=== PATIENT | male | born 1930 | race Caucasian/White ===

== ENCOUNTER 2020-03-18 19:23 | Emergency (ER) | payer MEDICARE, OTHER ==
[~2020-03-18] VITALS: Ht 172.7 cm; Wt 90.0 kg
[2020-03-18] MEDS ORDERED: 0.9 % SODIUM CHLORIDE 10 ML DISP.SYRIN. IV PRN (20:00)
[2020-03-18] MEDS ORDERED: VANCOMYCIN PER PHARMACY MC ONE (20:00)
[2020-03-18] MEDS ORDERED: IV NORMAL SALINE 1,000ML 1,000 ML IV ONE ×2 (20:00)
[2020-03-18] MEDS ORDERED: PIPERACILLIN/TAZOBACTAM 4.5 GM VIAL IV ONE (20:07)
[2020-03-18] MEDS ORDERED: IOHEXOL 350 MG/ML 100 ML VIAL. IV ONE (20:15)
[2020-03-18 20:30] LABS: BASO % 0 % (0-3); EOS % 0 % (0-3); HEMATOCRIT 44.8 % (39.0-53.0); HEMOGLOBIN 14.6 g/dL (13.0-17.5); LYMPH # 0.4 x10^3/uL (1.0-4.8); LYMPH % 8 % (24-48); MEAN CORPUSCULAR HEMOGLOBIN 27 pg (25-35); MEAN CORPUSCULAR HGB CONC 33 g/dL (31-37); MEAN CORPUSCULAR VOLUME 83 fL (79-100); MONO # 0.6 x10^3/uL (0.0-1.1); MONO % 12 % (0-9); NEUT # 3.8 x10^3uL (1.8-7.7); NEUT % 79 % (31-73); PLATELET COUNT 183 x10^3/uL (140-400); RED BLOOD COUNT 5.42 x10^6/uL (4.30-5.70); RED CELL DISTRIBUTION WIDTH 14.6 % (11.5-14.5); WHITE BLOOD COUNT 4.8 x10^3/uL (4.0-11.0)
[2020-03-18] MEDS ORDERED: CONTRAST GIVEN. MC PRN (20:30)
[2020-03-18] MEDS ORDERED: PIPERACILLIN/TAZOBACTAM 4.5 GM in IV NORMAL SALINE 50ML 50 ML IV ONE (20:30)
--- NOTE | 2020-03-18 20:36 | PHYS DOC ---
General Adult EDM: Chief Complaint: SHORTNESS OF BREATH HPI: HPI: 89-year-old male past medical history significant for CVA (no residual deficits), hypertension, hyperlipidemia, atrial flutter on Xarelto and GERD, presents to the ED brought in by his daughter with concern for generalized weakness, fatigue, left anterior rib pain, with fall and blunt head injury 2 days ago (LOC unknown). Patient tested positive for Covid approximately 8 days ago and has completed 5 days of prednisone, 40 mg daily. No prior h/o chf (has normal "EF"-daughter present is an ED physician from [place]), syncope or blood clots. Hx limited due to pts' confusion which is new, has no underlying dementia (lives at home w/). PMD-[facility]. No recent hospitalizations. 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 Review of Systems: Review of Systems: ROS limited due to confusion-pt denies any active pain Current Medications: Current Meds: Current Medications Medications (Trade) Dose Ordered Sig/Jerilyn Start Time Stop Time Status Last Admin Dose Admin Info (Do NOT chart on this entry -- for MONITORING) 1 each PRN DAILY PRN 03/18/20 20:30 03/20/20 20:29 Iohexol (Omnipaque 350 Mg/ml) 100 ml 1X ONCE 03/18/20 20:15 03/18/20 20:16 DC Piperacillin Sod/ Tazobactam Sod (Zosyn) 4.5 gm STK-MED ONCE 03/18/20 20:07 03/18/20 20:07 DC Piperacillin Sod/ Tazobactam Sod 4.5 gm/Sodium Chloride 50 ml @ 100 mls/hr 1X ONCE 03/18/20 20:30 03/18/20 20:59 Sodium Chloride 1,000 ml @ 1,000 mls/hr 1X ONCE 03/18/20 20:00 03/18/20 20:59 Sodium Chloride (Normal Saline Flush) 10 ml QSHIFT PRN 03/18/20 20:00 Vancomycin HCl (Vanco Per Pharmacy) 1 each 1X ONCE 03/18/20 20:00 03/18/20 20:01 UNV Allergies: Allergies: Allergies Coded Allergies Type Severity Reaction Last Updated Verified No Known Drug Allergies 03/18/20 No Physical Exam: PE: Constitutional: appears fatigued/worn out, temp 100.0, HENT: bruising over right forehead, no raccoon eyes or periorbital ecchymosis, bilateral external ears normal, no hemotympanum, no septal hematoma, oropharynx moist, no oral exudates, nose normal. [] Eyes: PERRLA, EOMI, conjunctiva normal, no discharge. [] Neck: Normal range of motion, no tenderness, supple, no stridor. [] Cardiovascular:Heart rate regular rhythm, no murmur [] Lungs & Thorax: Bilateral breath sounds clear to auscultation [] actively dry coughing in ED, tachypnea in the low 30s, saturating 92% on 3 L nasal cannula (was in upper 70s/low 80s on no oxygen on arrival), left lower chest wall ttp, Abdomen: Bowel sounds normal, soft, no masses, no pulsatile masses, large area of ecchymosis approximately 15 x 15 cm over left lower quadrant and left lumbar mid axillary region, no hip ttp Skin: Warm, dry, no erythema, no rash. [] Back: No midline tenderness, no CVA tenderness. [] old scabs over left mid- thoracic region in linear unilateral distribution-resolving shingles? Extremities: No tenderness, no cyanosis, no clubbing, ROM intact, no edema. [] straight leg raise negative for back/neck pain Neurologic: Alert and oriented to self/month/year but answers some questions inappropriately/mumbles, normal motor function, normal sensory function, no focal deficits noted. [] EKG: EKG: Sinus rhythm at 83 bpm, no axis deviation, normal intervals, no T wave inversions, no ST elevations or ST depressions Radiology/Procedures: Radiology/Procedures: IMAGING REPORT Signed PATIENT: FRANCINE SÁNCHEZ PACCOUNT: [id number] : 1930 LOCATION: ER AGE: 89 SEX: M EXAM STATUS: REG ER ORD. PHYSICIAN: GREGORIA MENG DO REASON: fall on plavix PROCEDURE: CT HEAD AND CERVICAL SPINE WO CT scan of the head without contrast 03/18/2020 Clinical History: Fall. Anticoagulant therapy. Technique: Unenhanced, contiguous, 5 mm axial sections were obtained through the head. One or more of the following individualized dose reduction techniques were utilized for this study: 1. Automated exposure control. 2. Adjustment of the mA and/or kV according to patient size. 3. Use of iterative reconstruction technique. Findings: There is generalized parenchymal atrophy. Areas of decreased attenuation are seen within the periventricular and subcortical white matter of both cerebral hemispheres consistent with areas of small vessel ischemic disease. Areas of encephalomalacia are seen involving both frontal lobes. No acute parenchymal abnormality is seen. No extra-axial fluid collection is noted. No skull fracture is seen. Impression: No acute intracranial abnormality is seen. CT scan of the cervical spine without contrast November 17, 2019 Clinical history: Fall. Neck injury. Technique: Unenhanced, contiguous, 0.625 mm axial sections were obtained through the cervical spine. Axial, coronal and sagittal reconstructed images were obtained. One or more of the following individualized dose reduction techniques were utilized for this study: 1. Automated exposure control. 2. Adjustment of the mA and/or kV according to patient size. 3. Use of iterative reconstruction technique. Findings: Sagittal and coronal reconstructed images demonstrate very mild lateral curvature of the cervical spine, convex to the right. There is straightening of the normal cervical lordosis. Degenerative changes consisting of varying degrees of disc space narrowing, vertebral endplate sclerosis and mild to moderate anterior and posterior vertebral body osteophyte formation are seen throughout the cervical disc spaces. No fracture or subluxation of the cervical vertebrae is seen. Degenerative changes are seen involving the uncovertebral and facet joints throughout the cervical disc spaces. Impression: No fracture or subluxation of the cervical vertebra is identified. Electronically signed by: Donato Burns MD (03/18/2020 9:50 PM) [id number] DICTATED AND SIGNED BY: DONATO BURNS MD DATE: 03/18/202149 CC: JANET AVELAR MD; GREGORIA MENG DO ~ IMAGING REPORT Signed PATIENT: FRANCINE SÁNCHEZ PACCOUNT: [id number] : 1930 LOCATION: ER AGE: 89 SEX: M EXAM STATUS: REG ER ORD. PHYSICIAN: GREGORIA MENG DO REASON: fall on plavix PROCEDURE: CT MAXILLOFACIAL WO CONTRAST CT scan of the facial bones without contrast 03/18/2020 CLINICAL HISTORY: Fall with facial injury. TECHNIQUE: Unenhanced, contiguous, 0.625 mm axial sections were obtained through the facial bones and orbits. 3 mm reconstructed sagittal, axial and coronal images were obtained. One or more of the following individualized dose reduction techniques were utilized for this study: 1. Automated exposure control. 2. Adjustment of the mA and/or kV according to patient size. 3. Use of iterative reconstruction technique. FINDINGS: No facial bone fracture is seen. Both orbits are intact. Mild mucosal thickening is involving the left maxillary sinus and scattered throughout the ethmoid air cells bilaterally. No air-fluid level is seen. IMPRESSION: No facial bone or orbital fracture is seen. Electronically signed by: Donato Burns MD (03/18/2020 10:12 PM) [id number] DICTATED AND SIGNED BY: DONATO BURNS MD DATE: 03/18/202211 CC: JANET AVELAR MD; GREGORIA MENG DO ~ IMAGING REPORT Signed PATIENT: FRANCINE SÁNCHEZ PACCOUNT: [id number] : 1930 LOCATION: ER AGE: 89 SEX: M EXAM STATUS: REG ER ORD. PHYSICIAN: GREGORIA MENG DO REASON: OMNI 350,90ML IV.SOA,+COVID X8 DAYS AGO,R/O PE. PROCEDURE: CT ANGIO CHEST W ABD PEL W/ Exam: CT of chest, abdomen and pelvis with contrast INDICATION: Short of air TECHNIQUE: Sequential axial images through the chest, abdomen and pelvis obtained following the administration of 90 mL of Omni 350 IV contrast. Sagittal and coronal reformatted images were reconstructed from the axial data and reviewed. 3-D reformatted images were reconstructed from the axial data and reviewed. Comparisons: None FINDINGS: Visualized portions thyroid are unremarkable. No enlarged mediastinal lymph nodes are identified. Heart size is normal. No pericardial effusion. Mild coronary artery calcification. Thoracic aorta has a normal course and caliber. Pulmonary artery is not enlarged. No pulmonary embolus identified within the main, lobar or proximal segmental pulmonary arteries. Airways are patent. There is patchy groundglass opacity in periphery lungs bilaterally. No pneumothorax. Trace left pleural effusion. Evaluation of the upper abdomen is markedly limited secondary to extensive respiratory motion. There is a mildly displaced fractures involving the posterior lateral eighth and ninth ribs. Liver, spleen, pancreas, adrenals and gallbladder are unremarkable. No perinephric inflammation or hydronephrosis. Hypoattenuating cystic lesion exophytic likely arising off the mid to lower pole of the right kidney likely representing simple cysts. No renal or ureteral calculi are identified. Bladder is partially distended and not well evaluated. Prostate is not well evaluated. Large and small bowel are unremarkable. Appendix is normal. No free intra-abdominal air or fluid. No obstruction. Abdominal aorta has a normal course and caliber. Abdominal vasculature is patent. No enlarged intra-abdominal lymph nodes are identified. IMPRESSION: 1. Extensive Patchy groundglass opacity at the lungs bilaterally consistent with history of Covid. 2. No pulmonary embolus identified within the main, lobar or segmental pulmonary arteries. 3. Mildly displaced fractures involving the left lateral eighth and ninth ribs. Exposure: One or more of the following in the visualized dose reduction techniques were utilized for this examination: 1. Automated exposure control 2. Adjustment of the MA and/or KV according to patient size 3. Use of iterative of reconstructive technique Electronically signed by: Cody Adler MD (03/18/2020 9:50 PM) [facility] DICTATED AND SIGNED BY: CODY ADLER MD DATE: 03/18/202149 CC: JANET AVELAR MD; GREGORIA MENG DO ~ Heart Score: Risk Factors: Risk Factors: DM, Current or recent (<one month) smoker, HTN, HLP, family history of CAD, obesity. Risk Scores: Score 0 - 3: 2.5% MACE over next 6 weeks - Discharge Home Score 4 - 6: 20.3% MACE over next 6 weeks - Admit for Clinical Observation Score 7 - 10: 72.7% MACE over next 6 weeks - Early Invasive Strategies Course & Med Decision Making: Course & Med Decision Making Pertinent Labs and Imaging studies reviewed. (See chart for details) COVID-19 CRITERIA: The patient was evaluated during the global COVID-19 pandemic, and that diagnosis was suspected/considered upon their initial presentation. Their evaluation, treatment and testing was consistent with c urrent guidelines for patients who present with complaints or symptoms that may be related to COVID-19. Concern for acute hypoxic respiratory failure, requiring BiPAP. Meets sepsis criteria-has covid, influenza negative. No lactic acidosis or leukocytosis. Troponin elevated-demand vs ischemia vs myocarditis, pt denies chest pain or soa. Also with acute encephalopathy-is confused. Pt improving on bipap, tachypnea resolved, saturating 96-97% on FiO2 55%, /. CTA with no PE, left lateral mildly displaced rib fractures (fell 2 days ago). U/A obtained from straight cath with trace blood, no infection (has bph and is voiding small amounts in ed, daughter refuses rivera placement). Due to critical nature, will transfer to higher level of care with interventional cardiology. Pts' daughter at bedside, requesting transfer to although and both [facility] are on high volume. Daughter requesting [facility]-pt accepted and stable at time of transfer. Critical Care: Authorized and Performed by: Gregoria Meng DO Total critical care time: approximately 45 minutes Due to a high probability of clinically significant, life threatening deterioration, the patient required my highest level of preparedness to intervene emergently and I personally spent this critical care time directly and personally managing the patient. This critical care time included obtaining a history; examining the patient; pulse oximetry; ventilator management if necessary; ordering and review of studies; arranging urgent treatment with d evelopment of a management plan; evaluation of patient's response to treatment; frequent reassessment; discussion with patient/family; and, discussions with other providers. This critical care time was performed to assess and manage the high probability of imminent, life-threatening deterioration that could result in multi-organ failure. It was exclusive of separately billable procedures and treating other patients and teaching time. Please see MDM section and the rest of the note for further information on patient assessment and treatment. Dragon Disclaimer: Dragon Disclaimer: This electronic medical record was generated, in whole or in part, using a voice recognition dictation system. Departure Departure: Impression: Primary Impression: Acute respiratory failure with hypoxia Additional Impressions: COVID-19 Elevated troponin I level Sepsis Encephalopathy acute Fracture, ribs Disposition: 02 DC/TRF OTHER SHORT TERM HOS (Accepted at [facility], Dr. Roge Burk) Condition: CRITICAL Referrals: JANET AVELAR MD (PCP) GREGORIA MENG DO Mar 18, 2020 20:36
[2020-03-18 20:43] LABS: CALCIUM 8.4 mg/dL (8.5-10.1); CREATININE 1.3 mg/dL (0.7-1.3)
[2020-03-18 20:47] LABS: DIRECT BILIRUBIN 0.3 mg/dL (0.0-0.2); TOTAL BILIRUBIN 0.7 mg/dL (0.2-1.0); TOTAL PROTEIN 6.4 g/dL (6.4-8.2)
[2020-03-18 20:48] LABS: C REACTIVE PROTEIN 137.9 mg/L (0-3.3)
[2020-03-18] MEDS ORDERED: DEXAMETHASONE SOD PHOS 10 MG/ML VIAL. IV ONE (21:00)
[2020-03-18 21:26] LABS: INFLUENZA A PATIENT NEGATIVE (NEGATIVE); INFLUENZA B PATIENT NEGATIVE (NEGATIVE)
[2020-03-18] MEDS ORDERED: VANCOMYCIN 2 GM in IV NORMAL SALINE 500ML 500 ML IV ONE (21:30)
--- NOTE | 2020-03-18 21:54 | RAD ---
CT scan of the head without contrast 03/18/2020 Clinical History: Fall. Anticoagulant therapy. Technique: Unenhanced, contiguous, 5 mm axial sections were obtained through the head. One or more of the following individualized dose reduction techniques were utilized for this study: 1. Automated exposure control. 2. Adjustment of the mA and/or kV according to patient size. 3. Use of iterative reconstruction technique. Findings: There is generalized parenchymal atrophy. Areas of decreased attenuation are seen within the periventricular and subcortical white matter of both cerebral hemispheres consistent with areas of small vessel ischemic disease. Areas of encephalomalacia are seen involving both frontal lobes. No acute parenchymal abnormality is seen. No extra-axial fluid collection is noted. No skull fracture is seen. Impression: No acute intracranial abnormality is seen. CT scan of the cervical spine without contrast November 17, 2019 Clinical history: Fall. Neck injury. Technique: Unenhanced, contiguous, 0.625 mm axial sections were obtained through the cervical spine. Axial, coronal and sagittal reconstructed images were obtained. One or more of the following individualized dose reduction techniques were utilized for this study: 1. Automated exposure control. 2. Adjustment of the mA and/or kV according to patient size. 3. Use of iterative reconstruction technique. Findings: Sagittal and coronal reconstructed images demonstrate very mild lateral curvature of the cervical spine, convex to the right. There is straightening of the normal cervical lordosis. Degenerative changes consisting of varying degrees of disc space narrowing, vertebral endplate sclerosis and mild to moderate anterior and posterior vertebral body osteophyte formation are seen throughout the cervical disc spaces. No fracture or subluxation of the cervical vertebrae is seen. Degenerative changes are seen involving the uncovertebral and facet joints throughout the cervical disc spaces. Impression: No fracture or subluxation of the cervical vertebra is identified. Electronically signed by: Donato Burns MD (03/18/2020 9:50 PM) [id number]
--- NOTE | 2020-03-18 21:54 | RAD ---
Exam: CT of chest, abdomen and pelvis with contrast INDICATION: Short of air TECHNIQUE: Sequential axial images through the chest, abdomen and pelvis obtained following the administration of 90 mL of Omni 350 IV contrast. Sagittal and coronal reformatted images were reconstructed from the axial data and reviewed. 3-D reformatted images were reconstructed from the axial data and reviewed. Comparisons: None FINDINGS: Visualized portions thyroid are unremarkable. No enlarged mediastinal lymph nodes are identified. Heart size is normal. No pericardial effusion. Mild coronary artery calcification. Thoracic aorta has a normal course and caliber. Pulmonary artery is not enlarged. No pulmonary embolus identified within the main, lobar or proximal segmental pulmonary arteries. Airways are patent. There is patchy groundglass opacity in periphery lungs bilaterally. No pneumothorax. Trace left pleural effusion. Evaluation of the upper abdomen is markedly limited secondary to extensive respiratory motion. There is a mildly displaced fractures involving the posterior lateral eighth and ninth ribs. Liver, spleen, pancreas, adrenals and gallbladder are unremarkable. No perinephric inflammation or hydronephrosis. Hypoattenuating cystic lesion exophytic likely arising off the mid to lower pole of the right kidney likely representing simple cysts. No renal or ureteral calculi are identified. Bladder is partially distended and not well evaluated. Prostate is not well evaluated. Large and small bowel are unremarkable. Appendix is normal. No free intra-abdominal air or fluid. No obstruction. Abdominal aorta has a normal course and caliber. Abdominal vasculature is patent. No enlarged intra-abdominal lymph nodes are identified. IMPRESSION: 1. Extensive Patchy groundglass opacity at the lungs bilaterally consistent with history of Covid. 2. No pulmonary embolus identified within the main, lobar or segmental pulmonary arteries. 3. Mildly displaced fractures involving the left lateral eighth and ninth ribs. Exposure: One or more of the following in the visualized dose reduction techniques were utilized for this examination: 1. Automated exposure control 2. Adjustment of the MA and/or KV according to patient size 3. Use of iterative of reconstructive technique Electronically signed by: Cody Alejo MD (03/18/2020 9:50 PM) [facility]
--- NOTE | 2020-03-18 22:14 | RAD ---
CT scan of the facial bones without contrast 03/18/2020 CLINICAL HISTORY: Fall with facial injury. TECHNIQUE: Unenhanced, contiguous, 0.625 mm axial sections were obtained through the facial bones and orbits. 3 mm reconstructed sagittal, axial and coronal images were obtained. One or more of the following individualized dose reduction techniques were utilized for this study: 1. Automated exposure control. 2. Adjustment of the mA and/or kV according to patient size. 3. Use of iterative reconstruction technique. FINDINGS: No facial bone fracture is seen. Both orbits are intact. Mild mucosal thickening is involving the left maxillary sinus and scattered throughout the ethmoid air cells bilaterally. No air-fluid level is seen. IMPRESSION: No facial bone or orbital fracture is seen. Electronically signed by: Donato Burns MD (03/18/2020 10:12 PM) [id number]
[2020-03-18] MEDS ORDERED: LIDOCAINE (700MG/PATCH) PATCH. TD ONE (23:00)
[2020-03-18 23:06] LABS: BACTERIA,URINE 0 /HPF (0-FEW); BILIRUBIN,URINE NEG (NEG); CLARITY,URINE CLEAR; COLOR,URINE YELLOW; GLUCOSE,URINE NEG (NEG); NITRITE,URINE NEG (NEG); RBC,URINE 0 /HPF (0-2); SQUAMOUS EPITHELIAL CELL,UR OCC /LPF; UROBILINOGEN,URINE 0.2 mg/dL (0.2 mg/dL); WBC,URINE RARE /HPF (0-4)
[2020-03-19 00:54] VITALS: BP 147/86
[2020-03-19 02:24] LABS: BGAS PH 7.46 (7.35-7.46)
[2020-03-19 02:26] LABS: BGAS PH 7.42 (7.35-7.46)
--- NOTE | 2020-03-19 08:05 | EKG ---
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
== END 2020-03-19 01:28 | disposition short-term general hospital (02) ==
LOC: ER 19:23
DX: J96.01 Acute respiratory failure with hypoxia (principal); S22.42XA Multiple fractures of ribs, left side, initial encounter for closed fracture; A41.9 Sepsis, unspecified organism; U07.1 COVID-19; G93.40 Encephalopathy, unspecified; R77.8 Other specified abnormalities of plasma proteins; K21.9 Gastro-esophageal reflux disease without esophagitis; R53.1 Weakness; R53.83 Other fatigue; I10 Essential (primary) hypertension; Z98.890 Other specified postprocedural states; W18.39XA Other fall on same level, initial encounter; Y93.89 Activity, other specified; Y92.89 Other specified places as the place of occurrence of the external cause; Y99.8 Other external cause status
CPT/HCPCS: 36415; 36600; 70450; 70486; 71275; 72125; 74177; 80048; 80076; 81001; 82550; 82728; 82803; 83605; 83615; 83690; 83880; 84484; 85025; 85610; 85730; 86140; 87040; 87804; 93005; 94660; 96365; 96366; 96367; 96375; 99291; J1100; J2543; J3370; J7030; J7040; Q9967